=== PATIENT | female | born 1945 | race Caucasian/White ===

== ENCOUNTER 2017-02-04 16:11 | Outpatient (CLI) | payer MEDICARE, OTHER ==
--- NOTE | 2017-02-04 20:58 | Diagnostic Imaging Report ---
WHIT MAHMOOD (EVAN) - OP~ [facility] [address] [address] ~ ~ ~ ~ Report Submission Date: Feb 04, 2017 5:24:23 PM CDT Patient ~ Study Name: ADI DOWNEY ~ Date: Feb 04, 2017 4:26:35 PM CDT ~ Modality Type: CR Gender: F ~ Description: SHOULDER : 49 ~ Institution: [facility] Physician: WHIT MAHMOOD (EVAN) - OP ~ ~ ~ ~ Examination: Plain film shoulder History: Shoulder discomfort Comparison exams: None provided Findings: 2 views of the shoulder demonstrate normal cortical margins.~ No evidence for fracture or dislocation. No soft tissue abnormality Impression: No acute osseous process ~ Electronically signed on Feb 04, 2017 5:24:23 PM CDT by: Satish SNYDER
--- NOTE | 2017-02-04 21:00 | Diagnostic Imaging Report ---
WHIT MAHMOOD (EVAN) - OP~ [facility] [address] [address] ~ ~ ~ ~ Report Submission Date: Feb 04, 2017 5:26:49 PM CDT Patient ~ Study Name: ADI DOWNEY ~ Date: Feb 04, 2017 4:21:56 PM CDT ~ Modality Type: CR Gender: F ~ Description: SPINE : 49 ~ Institution: [facility] Physician: WHIT MAHMOOD) - OP ~ ~ ~ ~ Examination: Cervical spine History: Neck discomfort Comparison exams: None available Findings: 4 views of the cervical spine demonstrate normal height and alignment. ~ No anterior compression.~ No abnormal listhesis.~ Fusion of the C4 through C7 vertebral bodies with anterior fixation hardware C5 through C7. No odontoid abnormality.~ No prevertebral abnormality Impression: Prior fusion. Degenerative changes. No acute appearing osseous abnormality. ~ Electronically signed on Feb 04, 2017 5:26:49 PM CDT by: Satish SNYDER
== END 2017-02-04 16:20 ==
LOC: RAD 16:11
PROVIDERS: ATTEND Nurse Practitioner Family
DX: M54.2 Cervicalgia (principal); M25.512 Pain in left shoulder
CPT/HCPCS: 72040; 73030